=== PATIENT | female | born 1960 | race Caucasian/White ===

== ENCOUNTER → 2016-07-25 | Outpatient (CLI) | payer BC | END | disposition home or self-care (01) | LOC: C.PAPS 14:18 | PROVIDERS: ATTEND Obstetrics & Gynecology | DX: Z01.419 Encounter for gynecological examination (general) (routine) without abnormal findings (principal) ==

== ENCOUNTER → 2017-05-30 | Outpatient (CLI) | payer BC ==
--- NOTE | 2017-05-31 12:50 | MAMMOGRAPHY REPORT ---
BILATERAL DIGITAL SCREENING MAMMOGRAM TOMOSYNTHESIS WITH CAD: 05/30/2017 CLINICAL HISTORY: Routine screening. Patient has no complaints. TECHNIQUE: Breast tomosynthesis in addition to standard 2D mammography was performed. Current study was also evaluated with a Computer Aided Detection (CAD) system. COMPARISON: Comparison is made to exams dated: 05/23/2016 mammogram, 05/20/2015 mammogram, 4 mammogram, 05/18/2013 mammogram, 05/15/2012 mammogram, and 05/10/2011 mammogram - [facility]. BREAST COMPOSITION: The tissue of both breasts is heterogeneously dense, which may obscure small mas ses. FINDINGS: There is a nodular 5 mm asymmetry with associated calcifications seen within the left medi al breast middle depth on the cc view, possibly projecting superiorly on the MLO view, for which spot magnification views, spot compression tomosynthesis views, and possible breast ultrasound are recomm ended for further evaluation. The remainder of both breasts are stable compared to prior exams, without suspicious masses, calcific ations, or areas of architectural distortion noted. Other scattered bilateral benign-appearing calci fications are not significantly changed. IMPRESSION: ACR BI-RADS CATEGORY 0: INCOMPLETE EVALUATION: NEED ADDITIONAL IMAGING EVALUATION Left breast asymmetry and associated calcifications, for which additional imaging evaluation is recom mended. The patient will be called to schedule an appointment. Approximately 10% of breast cancers are not detected with mammography. A negative mammographic report should not delay biopsy if a clinically suggestive mass is present. Deborah Montero M.D. ah/:05/30/2017 16:11:29 Vein Pumper: Margarita ALBERT)([place]), [facility] letter sent: Addl Imaging 0 BI-RADS Code: ACR BI-RADS Category 0: Incomplete Evaluation: Need Additional Imaging Evaluation
== END | disposition home or self-care (01) ==
LOC: C.MAMM 10:33
PROVIDERS: ATTEND Obstetrics & Gynecology
DX: Z12.31 Encounter for screening mammogram for malignant neoplasm of breast (principal); N64.9 Disorder of breast, unspecified; R92.1 Mammographic calcification found on diagnostic imaging of breast

== ENCOUNTER → 2017-06-06 | Outpatient (CLI) | payer BC ==
--- NOTE | 2017-06-06 12:46 | MAMMOGRAPHY REPORT ---
UNILATERAL LEFT DIGITAL DIAGNOSTIC MAMMOGRAM TOMOSYNTHESIS AND TARGETED LEFT ULTRASOUND: 06/06/2017 CLINICAL HISTORY: Callback from screening mammogram for left breast asymmetry and associated calcific ations. The patient reports a family history of breast cancer with her mother diagnosed in her 30s. TECHNIQUE: Breast tomosynthesis in addition to standard 2D mammography was performed. Spot compress ion left CC and MLO 2-D and tomosynthesis images and spot magnification left CC and ML views were obt ained. COMPARISON: Comparison is made to exams dated: 05/30/2017 mammogram, 05/23/2016 mammogram, 5 mammogram, 05/19/2014 mammogram, 05/18/2013 mammogram, and 05/15/2012 mammogram - [facility]. BREAST COMPOSITION: The tissue of the left breast is heterogeneously dense, which may obscure small masses. FINDINGS: Spot magnification views demonstrate a small 6 cm cluster of punctate calcifications withi n the left upper inner quadrant. The calcifications are in association with a subtle asymmetry on th e spot compression views, therefore, ultrasound was performed. Another small cluster of calcificatio ns seen medially on the cc view is stable compared to multiple prior exams. An asymmetry seen within the left medial breast on the spot compression views appears similar to multiple prior exams and has the appearance of normal fibroglandular tissue on the tomosynthesis images. Targeted ultrasound was performed of the left medial breast in the region of the mammographic asymmet ry and calcifications. In the left breast at 10:00, 6 cm from the nipple, there is an oval circumscr ibed anechoic mass with a few thin internal septations, measuring 5 x 5 mm. Additionally, a few punc willis echogenic foci are seen within the mass, which likely represent calcifications. A BB was placed on the skin at the site of this mass and repeat spot compression left MLO and cc tomosynthesis image s were obtained. The BB is located near the asymmetry and associated calcifications, indicating prob able correlation between the sonographic and mammographic findings. The finding is probably benign a nd likely represents a cyst with internal calcifications. IMPRESSION: ACR-BI-RADS CATEGORY 3: PROBABLY BENIGN, TARGETED ULTRASOUND ACR-BI-RADS CATEGORY 3: PRO BABLY BENIGN Circumscribed 5 mm anechoic mass within the left breast at 10:00 on ultrasound, which is felt to nehemias espond with the mammographic asymmetry and associated calcifications. The mass is probably benign an d likely represents a cyst with internal calcifications. Recommend follow-up diagnostic tomosynthesi s mammograms and possible ultrasound of the left breast in 6 months to reevaluate. The patient has been verbally notified of the results. Approximately 10% of breast cancers are not detected with mammography. A negative mammographic report should not delay biopsy if a clinically suggestive mass is present. Deborah Montero M.D. ah/:06/06/2017 12:12:18 Irrigation Foreman: Summer MORRELL(Chris)(M), [facility] letter sent: Follow Up Recommended 3 BI-RADS Code: ACR-BI-RADS Category 3: Probably Benign Ultrasound BI-RADS: ACR-BI-RADS Category 3: Pr obably Benign
== END | disposition home or self-care (01) ==
LOC: C.MAMM 10:38
PROVIDERS: ATTEND Obstetrics & Gynecology
DX: R92.0 Mammographic microcalcification found on diagnostic imaging of breast (principal); N63.20 Unspecified lump in the left breast, unspecified quadrant

== ENCOUNTER → 2017-08-20 | Outpatient (CLI) | payer BC | END | disposition home or self-care (01) | LOC: C.PAPS 13:30 | PROVIDERS: ATTEND Obstetrics & Gynecology | DX: Z01.419 Encounter for gynecological examination (general) (routine) without abnormal findings (principal) ==